=== PATIENT | female | born 1980 | race Asian ===

== ENCOUNTER 2016-11-27 00:54 | Emergency (ER) | payer OTHER ==
[~2016-11-27] VITALS: Ht 154.9 cm; Wt 72.7 kg
[2016-11-27] MEDS ORDERED: ONDANSETRON HCL 4 MG/2 ML VIAL IVP ONE (02:15)
[2016-11-27] MEDS ORDERED: KETOROLAC TROMETHAMINE 30 MG/ML VIAL IVP ONE (02:15)
[2016-11-27] MEDS ORDERED: METHOCARBAMOL 750 MG TABLET PO ONE (02:15)
[2016-11-27] MEDS ORDERED: HYDROmorphone 2 MG/ML SYRINGE IVP ONE (02:15)
[2016-11-27] MEDS ORDERED: METHOCARBAMOL 500 MG TABLET PO ONE (02:45)
[2016-11-27 04:50] VITALS: BP 100/60
== END 2016-11-27 05:34 | disposition home or self-care (01) ==
LOC: EMS 00:55
DX: M62.830 Muscle spasm of back (principal); M54.5 Low back pain; E78.00 Pure hypercholesterolemia, unspecified
CPT/HCPCS: 72100; 81025; 96374; 96375; 99284; J1170; J1885; J2405

== ENCOUNTER 2017-07-15 13:11 | Emergency (ER) | payer OTHER ==
[~2017-07-15] VITALS: Ht 154.9 cm; Wt 70.5 kg
[2017-07-15 13:27] LABS: GLUCOSE,POINT OF CARE 131 MG/DL (70-110)
[2017-07-15] MEDS ORDERED: SODIUM CHLORIDE 0.9% 1,000 ML IV ONE (14:30)
[2017-07-15 15:15] LABS: BASOPHILS % (AUTO) 0.8 % (0.0-2.0); EOSINOPHILS % (AUTO) 0.8 % (1.0-6.0); HEMATOCRIT 39.6 % (36-46); HEMOGLOBIN 13.2 g/dL (12.0-16.0); LYMPHOCYTES # (AUTO) 2.3 K/uL (1.0-4.8); LYMPHOCYTES % (AUTO) 22.2 % (22.0-44.0); MEAN CORPUSCULAR HEMOGLOBIN 27.8 pg (26.0-34.0); MEAN CORPUSCULAR HGB CONC 33.3 G/dL (31.0-37.0); MEAN CORPUSCULAR VOLUME 83 fL (80-100); MONOCYTES # (AUTO) 0.6 K/uL (0.1-1.0); MONOCYTES % (AUTO) 5.5 % (2.0-9.0); NEUTROPHILS # (AUTO) 7.3 K/uL (1.8-7.7); NEUTROPHILS % (AUTO) 70.7 % (40.0-70.0); PLATELET COUNT (AUTO) 367 K/uL (150-450); RED BLOOD CELL COUNT(AUTO) 4.74 MIL/uL (4.00-5.20); RED CELL DISTRIBUTION WIDTH 14.9 % (11.5-14.5); WHITE BLOOD COUNT (AUTO) 10.3 K/uL (4.5-11.0)
[2017-07-15 15:24] LABS: APPEARANCE,URINE CLEAR (CLEAR); GLUCOSE, URINE (UA) NEGATIVE (NEGATIVE); KETONES,URINE NEGATIVE (NEGATIVE); LEUKOCYTE ESTERASE ,URINE NEGATIVE (NEGATIVE); OCCULT BLOOD,URINE TRACE (NEGATIVE); PROTEIN,URINE NEGATIVE (NEGATIVE)
[2017-07-15 15:25] LABS: ADD UA MICROSCOPIC YES
[2017-07-15 15:26] LABS: SQUAMOUS EPITHELIAL CELL,UR Few /LPF (None Seen); WBC,URINE 0-2 /HPF (0-5)
[2017-07-15 15:30] LABS: ANION GAP 10 mmol/L (8-16); CALCIUM, TOTAL 9.3 mg/dL (8.8-10.5); CARBON DIOXIDE 28 mmol/L (22-29); CHLORIDE 100 mmol/L (98-107); CREATININE 0.76 mg/dL (0.60-1.30); GLOMERULAR FILTR. RATE CALC > 60 mL/min (>60); POTASSIUM 4.2 mmol/L (3.5-5.1); SODIUM SERUM 138 mmol/L (136-145); UREA NITROGEN, BLOOD 12 mg/dL (7-18)
[2017-07-15 15:52] LABS: GLUCOSE,POINT OF CARE 90 MG/DL (70-110)
[2017-07-15 15:57] LABS: ALANINE AMINOTRANSFERASE 32 U/L (12-78); ALBUMIN 4.3 g/dL (3.4-5.0); ASPARTATE AMINOTRANSFERASE 23 U/L (15-37); BILIRUBIN,TOTAL 0.2 mg/dL (0.1-1.0); CREATINE KINASE, TOTAL 140 U/L (26-192); TOTAL PROTEIN, SERUM 9.3 g/dL (6.4-8.2)
[2017-07-15 16:00] LABS: CREATINE KINASE MB < 0.5 ng/mL (0-5)
[2017-07-15 18:22] VITALS: BP 122/61
== END 2017-07-15 18:40 | disposition home or self-care (01) ==
LOC: EMS 13:13
DX: R55 Syncope and collapse (principal); E78.00 Pure hypercholesterolemia, unspecified
CPT/HCPCS: 36415; 70450; 80053; 80307; 81001; 82550; 82553; 82962; 84484; 84703; 85025; 93005; 96360; 99285; J7030

== ENCOUNTER 2018-11-15 02:03 | Emergency (ER) | payer OTHER ==
[~2018-11-15] VITALS: Ht 154.9 cm; Wt 65.5 kg
[2018-11-15] MEDS ORDERED: SERT50TA12 PO (02:09)
[2018-11-15] MEDS ORDERED: ACYC200C PO (02:09)
[2018-11-15] MEDS ORDERED: OMEG-135 PO (02:09)
[2018-11-15] MEDS ORDERED: ATOR20TA86 PO (02:09)
[2018-11-15 04:20] VITALS: BP 121/83
[2018-11-15] MEDS ORDERED: LORazepam 1 MG TABLET PO ONE (04:30)
== END 2018-11-15 04:44 | disposition home or self-care (01) ==
LOC: EMS 02:04
DX: R07.89 Other chest pain (principal); R20.0 Anesthesia of skin; R20.2 Paresthesia of skin; E78.00 Pure hypercholesterolemia, unspecified; G89.29 Other chronic pain; M54.9 Dorsalgia, unspecified; F32.9 Major depressive disorder, single episode, unspecified; Z79.899 Other long term (current) drug therapy
CPT/HCPCS: 70450; 93005

== ENCOUNTER 2023-11-01 14:46 | Emergency (ER) | payer OTHER ==
[~2023-11-01] VITALS: Ht 157.5 cm; Wt 68.2 kg
[~2023-11-01 14:46] MED LIST: ACYC200C24 PO; ATOR20TA PO; OMEG-135 PO; SERT-158 PO
[2023-11-01 14:51] VITALS: BP 129/80; PULSE 78; RESP 16; TEMP 98.5
[2023-11-01] MEDS: CYCLOBENZAPRINE HCL 10 MG TABLET PO ONE (15:23)
[2023-11-01] MEDS: IBUPROFEN 600 MG TABLET PO ONE (15:23)
[2023-11-01] MEDS ORDERED: CYCL-448 PO (15:29)
[2023-11-01] MEDS ORDERED: IBUP-1492 PO (15:29)
== END 2023-11-01 15:39 | disposition home or self-care (01) ==
LOC: EMS 14:46
DX: M25.511 Pain in right shoulder (principal); E78.00 Pure hypercholesterolemia, unspecified; F32.A Depression, unspecified; G89.29 Other chronic pain; M54.9 Dorsalgia, unspecified
CPT/HCPCS: 99283